=== PATIENT | male | born 1960 | race Hispanic/Latino ===

== ENCOUNTER 2019-05-17 03:46 | Emergency (ER) | payer OTHER ==
[~2019-05-17] VITALS: Ht 167.6 cm; Wt 61.2 kg
[2019-05-17 04:33] LABS: PLATELET COUNT 278 K/uL (142-355)
[2019-05-17 05:29] LABS: POTASSIUM 3.5 mmol/L (3.6-5.2)
[2019-05-17 06:05] VITALS: BP 149/64; TEMP 98.1
== END 2019-05-17 06:05 | disposition home or self-care (01) ==
LOC: ED 03:46
PROVIDERS: Hospitalist
DX: J44.1 Chronic obstructive pulmonary disease with (acute) exacerbation (principal); F41.9 Anxiety disorder, unspecified; F17.210 Nicotine dependence, cigarettes, uncomplicated
CPT/HCPCS: 36415; 80048; 80320; 85027; 87502; 87651; 94664; 96372; 99283; J1200; J2930

== ENCOUNTER 2019-06-23 17:33 | Outpatient (CLI) | payer OTHER | END 2019-06-23 17:35 | disposition short-term general hospital (02) | LOC: AMB 17:33 | DX: R06.03 Acute respiratory distress (principal) | CPT/HCPCS: A0425; A0427 ==

== ENCOUNTER 2019-06-23 17:36 | Inpatient (IN) | payer OTHER ==
[~2019-06-23] VITALS: Ht 165.1 cm; Wt 68.5 kg
[2019-06-23 17:36] VITALS: BP 133/84; TEMP 97.8
[2019-06-23 18:00] VITALS: BP 142/91
[2019-06-23 18:24] LABS: PLATELET COUNT 232 K/uL (142-355)
[2019-06-23 18:30] VITALS: BP 168/96
[2019-06-23 18:32] LABS: POTASSIUM 3.8 mmol/L (3.6-5.2)
[2019-06-23 23:55] VITALS: BP 153/99; TEMP 98.2
--- NOTE | 2019-06-24 00:18 | NUR ---
PT ADMITTED TO FLOOR TO ROOM 1106, BROUGHT TO ROOM BY WHEELCHAIR BY STAFF, ROCEPHIN INFUSING WITHOUT DIFFICULTY, NO SIGN OR SYMPTOMS OF REACTION, PT IS ALERT AND ORIENTED X3, VERY TALKATIVE, SMACKING LIPS AND ANXIOUS, SISTER WITH PT, PT SETTLED INTO ROOM, TELEMETRY APPLIED, V/S TAKEN, HEART RATE IS ELEVATED, B/P IS ELEVATED, RESPIRATORY RATE IS ELEVATED. HEAD TO TOE ASSESSMENT DONE, FINDINGS IN CHARTING. PT HAS SORES TO RT SIDE OF FACE AROUND EYES, PT ADMITS TO DOING METH THE MORNING BEFORE HE WAS BROUGHT TO ER. PT IS TALKING SPORATICALLY, BREATHING RAPIDLY. SISTER STATED "HE IS LIKE THIS WHEN HE DOES METH". PT ORIENTED TO ROOM. SISTER BROUGHT FOOD FOR PATIENT, HE IS EATING WITHOUT DIFFICULTY. IV TO RT AC IS PATENT WITH ROCEPHIN INFUSING AT THIS TIME. WILL CONTINUE TO MONITOR
[2019-06-24 01:24] VITALS: BP 158/114; TEMP 98.5; Ht 165.1 cm; Wt 68.5 kg
[2019-06-24 04:00] VITALS: BP 152/112; TEMP 98.4
[2019-06-24 08:18] VITALS: BP 173/103; TEMP 97.4
[2019-06-24 14:04] VITALS: BP 152/102; TEMP 98.3
[2019-06-24 16:27] VITALS: BP 137/95; TEMP 98
[2019-06-24 19:57] VITALS: BP 139/95; TEMP 97.5
--- NOTE | 2019-06-24 20:05 | NUR ---
DR ALBINO JOSE IN TO SEE PT PER DR MAGALIE JOSE'S REQUEST
[2019-06-25 00:28] VITALS: BP 134/85; TEMP 98.1
[2019-06-25 03:50] LABS: PLATELET COUNT 374 K/uL (142-355)
[2019-06-25 04:00] VITALS: BP 155/95; TEMP 98.1
[2019-06-25 08:00] VITALS: BP 151/79; TEMP 98.4
[2019-06-25 11:03] LABS: POTASSIUM 3.3 mmol/L (3.6-5.2)
[2019-06-25 20:00] VITALS: BP 140/78; TEMP 100.7
[2019-06-26] VITALS: BP 128/77; TEMP 97.8
[2019-06-26 04:00] VITALS: BP 154/97; TEMP 98.2
[2019-06-26 04:48] LABS: PLATELET COUNT 370 K/uL (142-355)
--- NOTE | 2019-06-26 04:48 | NUR ---
06/26/2019 0430 WENT TO CHECK IN ON PATIENT HE IS SITTING IN CHAIR HE IS RESTLESS.PATIENT HAS PULLED OUT SALLINE LOCK PULLED HIIS TELEMENTRY OFF.ALSO HAS SOILED HIS PANTS WITH URINE.PT THREW ITEMS ALLOVER ROOM SAID HE JUST DID IT TO HAVE SOMETHING TO DO. GOWN PUT ON PATIENT.RESTARTED SALIINE LOCK 22 GAUDGE TO LEFT UPPER ARM TAPED AND SECURED WITH TEGADERM AND KG.TOLERATED WELL.CC
[2019-06-26 05:29] LABS: POTASSIUM 4.1 mmol/L (3.6-5.2)
--- NOTE | 2019-06-26 07:20 | NUR ---
WHILE RECEIVING REPORT NURSING STAFF STATED PATIENT HAD LEFT THE ROOM. UPON SEARCHING SURRONDING NURSES STATION AND ROOM, PATIENT WAS NOT IN THE HOSPITAL. NEXT OF KIN NOTIFIED WHO IS SISTER TO PATIENT STATED HER BROTHER WAS AT HER HOUSE. SISTER NOTIFIED ABOUT PATIENT LEAVING AMA. NOTIFIED ABOUT PATIENT LEAVING AMA AND NO FURTHER ORDERS WERE GIVEN AT THIS TIME.
== END 2019-06-26 07:20 | disposition left against medical advice (07) | DRG 190 ==
LOC: ED 17:36 → MED/SURG 23:18
PROVIDERS: Family Medicine; ADMIT Emergency Medicine
DX: J44.0 Chronic obstructive pulmonary disease with (acute) lower respiratory infection (principal); J18.8 Other pneumonia, unspecified organism; J90 Pleural effusion, not elsewhere classified; E87.2 Acidosis; F31.89 Other bipolar disorder; J44.1 Chronic obstructive pulmonary disease with (acute) exacerbation; I50.9 Heart failure, unspecified; F19.10 Other psychoactive substance abuse, uncomplicated; Z91.19 Patient's noncompliance with other medical treatment and regimen; Z72.0 Tobacco use; I10 Essential (primary) hypertension
CPT/HCPCS: 36415; 80053; 80061; 80307; 81000; 82150; 82550; 83605; 83690; 83880; 84484; 85027; 85379; 87040; 87899; 93005; 93306; 94664; 94760; 96365; 99284; J0696; J1650; J1940; J1956; J2060; J3486; Q9963

== ENCOUNTER 2021-03-19 14:07 | Outpatient (CLI) | payer OTHER | END 2021-03-19 21:10 | disposition home or self-care (01) | LOC: RAD 14:07 | PROVIDERS: ATTEND Nurse Practitioner Family | DX: R06.02 Shortness of breath (principal); R60.1 Generalized edema; I50.22 Chronic systolic (congestive) heart failure ==

== ENCOUNTER 2021-05-19 11:09 | Inpatient (IN) | payer OTHER ==
[~2021-05-19] VITALS: Ht 175.3 cm; Wt 67.3 kg
[2021-05-19 11:10] VITALS: BP 143/100; TEMP 97.3
[2021-05-19 11:34] LABS: PLATELET COUNT 253 K/uL (142-355); POTASSIUM 3.5 mmol/L (3.6-5.2)
[2021-05-19 11:54] LABS: PARTIAL THROMBOPLASTIN TIME 29.2 SECONDS (24.5-33.6)
[2021-05-19 12:00] VITALS: BP 150/90
[2021-05-19 14:15] VITALS: BP 148/93
[2021-05-19 15:57] VITALS: BP 152/93; TEMP 98.2; Ht 175.3 cm; Wt 67.3 kg
--- NOTE | 2021-05-19 17:31 | NUR ---
1550 16 FR ALDRIDGE INSERTED AT THIS TIME. WITH 300 ML CLEAR YELLOW URINE OBSERVED. UDS COLLECTED PER MD ORDERS. SISTER DUONG KAY IS TO BRING MEDICATIONS BACK TO HOSPITAL. PT STATES WE ARE NOT TO TELL ANYONE BUT PAGE ANY INFORMATION. DUONG KAY REQUEST THAT SISTER IMER IS NOT TO ENTER HIS ROOM BC SHE WILL GIVE PT CONTROLLED SUBSTANCE. MD MADE AWARE.
--- NOTE | 2021-05-19 17:31 | NUR ---
1530 PT ARRIVED TO FLOOR VIA ADMISSION ASSESSMENT COMPLETED AT THIS TIME.
--- NOTE | 2021-05-19 18:25 | NUR ---
SISTER TO BRING PT HOME MEDS IN THE AM
[2021-05-19 20:25] VITALS: BP 139/78; TEMP 97.2
--- NOTE | 2021-05-19 22:56 | NUR ---
PATIENTS HEART RATE WAS RANGING FROM 97-143. PATIENT BP IS 157/86. BECAUSE THE PATIENTS RECENT NON-STEMI THE LIGHT CLEANER INFORMED THE ER MD GATES ABOUT THE TACHYCARDIA. ORDERED LOPRESSOR 5MG IV ONCE
--- NOTE | 2021-05-19 22:57 | NUR ---
PATIENT WILL NOT WEAR HIS O2. PATIENT PULLS IT OFF EVEN WHEN TAUGHT. PATIENT SATURATION IS 95-100 ON RA.
[2021-05-19 23:57] VITALS: BP 133/71; TEMP 96.8
[2021-05-20 04:49] VITALS: BP 142/88; TEMP 96.7
--- NOTE | 2021-05-20 04:53 | NUR ---
LATE ENTRY: PATIENT HAS BEEN RESTING QUIETLY. PATIENT HEART RATE AND BP ARE STABLE. PATIENT IS STILL CONFUSED BUT HE IS BECOMING MORE ALERT. MOUTH CARE WAS PREFORMED AND PATIENT REQUESTED TO SIT UP AND EAT A SNACK. PATIENT ATE WITH NO DIFFICULTY. PATIENT IS NOW RESTING QUIETLY
[2021-05-20 05:28] LABS: PLATELET COUNT 244 K/uL (142-355)
--- NOTE | 2021-05-20 05:33 | NUR ---
PATIENT BECAME AGGITATED AND WAS TRYING TO GET OUT OF BED. PATIENT BECAME MORE SOB AND TOOK HIS 02 OFF. PATIENT SATURATION DROPPED AND HE BEGAN PURSED LIP BREATHING. PATIENT WAS PULLING OFF HIS TELEMETRY WELL. PATIENT WAS GIVEN PRN ATTIVAN.
--- NOTE | 2021-05-20 05:38 | NUR ---
PATIENT WAS REPOSITONED AND AD OPERATIONS ASSOCIATE ATTEMPTED TO REORIENT. TELE REPLACED AND BED ALARM ON. PATIENT IS NOW ALERT TO SELF BUT NOT DAY OR SITUATION
[2021-05-20 05:51] LABS: POTASSIUM 3.6 mmol/L (3.6-5.2)
[2021-05-20 08:00] VITALS: BP 132/81; TEMP 97
--- NOTE | 2021-05-20 09:43 | NUR ---
8313 DR PATTERSON UPDATED ON PT CONDITION. BEDSIDE ASSESSMENT PER DR PATTERSON. DR PATTERSON TO REVIEW LABS AND GIVE NEW ORDERS.
--- NOTE | 2021-05-20 09:48 | NUR ---
PO MEDS NOT GIVEN PT TO LETHARGIC TO FOLLOW COMMANDS. DR PATTERSON NOTIFIED
--- NOTE | 2021-05-20 10:11 | NUR ---
SPOKE TO DR PATTERSON REGARDING LASIX IVP ORDER WAS CHANGED TO DAILY FROM BID. 40 MG DAILY IS TO START TOMORROW NOT TODAY
[2021-05-20 12:00] VITALS: BP 124/92; TEMP 97.6
--- NOTE | 2021-05-20 12:23 | NUR ---
1200 ATTEMPTED TWICE TO GIVE PT A BREATHING TX AND HE REFUSED.
--- NOTE | 2021-05-20 13:28 | NUR ---
20G TO LAC LEAKING SITE D/C WITH CATH INTACT. NEW SITE STARTED TO RFA FLUSHES WITH NO COMPLAINTS.
--- NOTE | 2021-05-20 15:06 | NUR ---
NOTIFIED OF CT RESULTS. IS GOING TO ORDER HEART ECHO FOR TOMORROW.
--- NOTE | 2021-05-20 15:07 | NUR ---
INITIAL ASSESSMNET COMPLETED ON THIS PT AT BEGINING OF SHIFT PT HAS LABORED BREATHING. USING ACCESSORY MUSCLES. LASIX IVP GIVEN PER MD ORDERS. PT URINE OUTPUT THIS SHIFT SO FAR HAS BEEN 2050ML YELLOW URINE. PT's SISTER ALSO NOTIFIED OF CT RESULTS. PER PT REQUEST ON ADMISSION HE SAID TALK TO PAGE AND DO WHATEVER PAGE SAYS DO.
[2021-05-20 16:00] VITALS: BP 140/91; TEMP 97.2
--- NOTE | 2021-05-20 17:49 | NUR ---
PT HAS RESTED COMFORTABLY FOR THE PAST 3 HOURS WITH RESP EVEN AND NOT LABORED.
--- NOTE | 2021-05-20 18:39 | NUR ---
$50 OF PATIENT MONEY PUT IN LOCK BOX. LINENS AND CLOTHES CHANGED.
[2021-05-20 19:53] VITALS: BP 114/74; TEMP 96.6
[2021-05-20 23:46] VITALS: BP 125/80; TEMP 97.7
[2021-05-21 04:01] VITALS: BP 128/86; TEMP 96.6
[2021-05-21 05:39] LABS: PLATELET COUNT 295 K/uL (142-355)
[2021-05-21 06:52] LABS: POTASSIUM 3.8 mmol/L (3.6-5.2)
--- NOTE | 2021-05-21 07:39 | NUR ---
ISRRAEL, RT IN TO GIVE PT AM BREATHING TREATMENT. PT'S NOTED TO HAVE O2 OFF. ISRRAEL PLACED PT'S O2 BACK ON. O2 READING NOTED TO BE 86% ON PULSE OX.
--- NOTE | 2021-05-21 07:40 | NUR ---
PT BED ALARM GOING OFF. ALY HAMMER AT PT'S BEDSIDE. PT NOTED TO ATTEMPT TO GET UP. PT NOTED TO BE DROWSY AND REMINDED HE CANNOT GET UP AT THIS TIME. PT ASSISTED BACK TO BED WITHOUT DIFFICULTY, O2 PLACED BACK ON PT.
[2021-05-21 08:00] VITALS: BP 127/78; TEMP 97.6
--- NOTE | 2021-05-21 08:30 | NUR ---
PT ASSISTED TO BS BY ALY HAMMER TO EAT BREAKFAST. PT REMAINS DROWSY, PT ORIENTED TO SELF. PT REORIENTED TO TIME AND PLACE. PT CONFIRMS THAT ROMEO KAY IS HIS SISTER. PT PO MEDS CRUSHED AND PLACED IN APPLESAUCE AT THIS TIME. PT TAKING MED WITHOUT DIFFICULTY. PT ABLE TO FEED HIMSELF BREAKFAST WITH MINIMAL ASSISTANCE AT THIS TIME. PT NOTED TO PULL O2 OFF. PT REMINDED THAT HE NEEDS HIS O2 AND O2 PLACED BACK ON PT. PT ASSISTED BACK TO BED AFTER EATING AND BED ALARM ON.
--- NOTE | 2021-05-21 09:00 | NUR ---
PETRA FROM [facility] IN TO OBTAIN ECHO AT THIS TIME.
[2021-05-21 12:00] VITALS: BP 126/92; TEMP 97.2
--- NOTE | 2021-05-21 14:15 | NUR ---
UPON ENTERING PT'S ROOM PT NOTED TO PULL TELEMTRY OFF AND LEANING UP ON THE SIDE RAIL. PT UNABLE TO VERBALIZE C/O. PT NOTED TO BE ANXIOUS AND GRUNTING.
--- NOTE | 2021-05-21 14:15 | NUR ---
PT'S SISTER, ROMEO, HERE AT THIS TIME. DR. PATTERSON UPATED HER ON PT'S CURRENT STATUS.
--- NOTE | 2021-05-21 14:19 | NUR ---
PT'S SISTER ROMEO INFORMED ME THAT PT'S OTHER SISTER GUY IS NOT ALLOWED TO VISIT WITH PT. MIKE VIDAL AT FRONT SCREENING DESK NOTIFIED AND MED SURG/ICU SENIOR POLICY ANALYST NOTIFIED WELL.
[2021-05-21 16:00] VITALS: BP 162/97; TEMP 97.2
[2021-05-21 20:14] VITALS: BP 125/95; TEMP 97
--- NOTE | 2021-05-21 21:30 | NUR ---
PM MEDS GIVEN AT THIS TIME CRUSHED IN APPLESAUCE.PT ABLE TO SWALLOW MED WITH APPLE SAUCE AND EAT WITH MINIMAL ASSIST. LOVENOX AND SOLUMEDROL ALSO GIVEN AT THIS TIME. PT. HAS MOMENTS OF WANTING TO PULL NASAL CANNULA OFF AND INCINERATOR PLANT LABORER EDUCATES ON THE IMPORTANCE OF KEEPING 02 ON. 02 PUT BACK ON PT AT THIS TIME. INCINERATOR PLANT LABORER NOTICES DARK RED URINE IN ALDRIDGE BAG. PT DOES HAVE MOMENTS AT PULLING AT ALDRIDGE SOMETIMES TOO. TELEMETRY PAD AND PULSE OXIMETRY PUT BACK ON PT AT THIS TIME. 20 G TO RIGHT HAND INITIATED AT THIS TIME X'S TWO ATTEMPTS. PT DROWSY AND LETHARGIC. PT HAS CERTAIN MOMENTS OF ANSWERING QUESTIONS APPROPRITELY BUT FALLS BACK ASLEEP. BED ALARM ON AND SIDE RAILS UP TIMES THREE AT THIS TIME. PT READJUSTED IN BED AND WAS ADJUSTED TO A HIGH FOWLERS POSITION WITH PILLOWS BETWEEN BOTH LEG AND HAS BILATERAL ARMS ELEVATED AT THIS TIME.
[2021-05-22] VITALS: BP 144/102; TEMP 96.9
[2021-05-22 04:00] VITALS: BP 94/73; TEMP 97.9
[2021-05-22 05:57] LABS: PLATELET COUNT 201 K/uL (142-355)
[2021-05-22 06:07] LABS: POTASSIUM 4.5 mmol/L (3.6-5.2)
[2021-05-22 08:00] VITALS: BP 130/62; TEMP 97.1
[2021-05-22 12:00] VITALS: BP 118/73; TEMP 98.1
--- NOTE | 2021-05-22 12:45 | NUR ---
BRIAN, PT REPORTS PT UP IN CHAIR AT BEDSIDE, PT REAL SOB WITH TRANSFER FROM BED TO CHAIR AT BS.
[2021-05-22 16:00] VITALS: BP 131/79; TEMP 97.8
[2021-05-22 20:00] VITALS: BP 128/84; TEMP 97.6
[2021-05-23] VITALS: BP 134/89; TEMP 98.5
--- NOTE | 2021-05-23 02:19 | NUR ---
PATIENT IN BED AT THIS TIME. PATIENT IS ALERT AND ORIENTED X2. PATIENT GIVEN PM MEDICATIONS CRUSHED WITH PUDDING. PATIENT TOLERATED MEDICATIONS IN PUDDING WELL. PATIENT IS AGITATED THIS PM. PATIENT IS UP AND DOWN OUT OF BED. PATIENT REORIENTED EACH TIME AND PLACED BACK IN BED. NURSE MONITORING CLOSLY. PATIENT KEEPS PULLING OFF O2. PATIENT EDUCATED ON THE IMPORTANCE OF KEEPING OXYGEN IN PLACE. PATIENT VERBALIZES UNDERSTANDING. CALL LIGHT WITHIN REACH. WILL CONTINUE TO MONITOR.
[2021-05-23 04:00] VITALS: BP 118/76; TEMP 98.4
[2021-05-23 05:33] LABS: PLATELET COUNT 227 K/uL (142-355)
[2021-05-23 05:50] LABS: POTASSIUM 4.2 mmol/L (3.6-5.2)
[2021-05-23 08:00] VITALS: BP 165/94; TEMP 97.6
--- NOTE | 2021-05-23 09:04 | NUR ---
SISTER JAXON CALLED THIS MORNING REQUESTING INFORMATION ON THE PATIENT. INFORMATION WAS NOT PROVIDED TO JAXON. UPON ADMISSION, PATIENT STATED THAT HE WANTED ROMEO TO BE CONTACTED AND TO DO WHATEVER ROMEO SAID TO DO. WITNESSED BY LETICIA HAMM RN CHARGE NURSE.
--- NOTE | 2021-05-23 09:20 | NUR ---
05/23/21 0900 NOTIFED AND UPDATED ON PT THIS AM.V/S 97.6 105 20 165/94 92.PT IS AWAKE SITTING ON SIDE OF BED OCCASIONALLY TRIES TO GET OUT OF BED BUT WILL LIE BACK DOWN WHEN HE IS ASSISTED TO DO SO.ALSO TOLD HER OF PT HAVING LARGE SCROTUM BUT PT HAS BEEN PULLING AT ALDRIDGE CATHETER AT TIMES.INQUIRED ABOUT ECHO TOLD HER ONE WAS DONE ON 05/21/21.ECHO IS ON CHART.WILL CONTINUE TO MONITOR.CALL LIGHT IS WITHIN REACH BED ALARM IS ON.CC
--- NOTE | 2021-05-23 10:37 | NUR ---
9519 SPOKE TO DUONG REGARDING SISTER JAXON CALLING FACILITY MAKING THREATS TOWARD FACILITY. IN REGARDS TO THIS PT THAT SHE REFERS TO HER DAD WHO IS ACTUALLY JAXON'S BROTHER. I TOLD DUONG TO PLEASE CALL AND UPDATE JAXON. THAT INFORMATION COULD ONLY BE RELEASED TO DUONG AND DECISIONS COULD ONLY BE MADE BY DUONG PER PATIENT REQUEST. DUONG TOLD ME SHE DOES NOT HAVE A NUMBER TO CONTACT JAXON. I THEN TOLD HER THAT SHE WOULD HAVE TO MANAGE FAMILY DYNAMICS WE COULD NOT MAKE CHOICES WITH THAT. SHE SAID SHE COULDNT DO ANYTHING WITH JAXNO I TOLD HER TO GET A RESTRAINING ORDER AND TOLD HER SHE DOES NOT HAVE HEALTH CARE POA SHE SHOULD GET IT.
[2021-05-23 12:00] VITALS: BP 147/91; TEMP 97.9
[2021-05-23 16:00] VITALS: BP 159/84; TEMP 98
[2021-05-23 20:26] VITALS: BP 143/83
[2021-05-24] VITALS (7 sets, daily range): BP systolic 119–134; BP diastolic 67–86; TEMP 96.8–98
[2021-05-24 06:51] LABS: PLATELET COUNT 199 K/uL (142-355)
[2021-05-24 07:46] LABS: POTASSIUM 4.5 mmol/L (3.6-5.2)
--- NOTE | 2021-05-24 11:08 | NUR ---
Palma from administration called and said that sister Sola was over there earlier and that she was taking patient her brother with her. He says that he is leaving with her as well. Nuclear Monitoring Technician spoke with other sister Park and she wishes that he would come home with her under hospice but that he is refusing and that there is nothing sunday she can do.
--- NOTE | 2021-05-24 13:20 | NUR ---
0800- SISTER JAXON HERE TO VISIT PATIENT. SISTER ROMEO CALLED TO ASK IF SHE COULD VISIT SHE GRANTED PERMISSION. SISTER JAXON INSTRUCTED THAT VISITATION IS FROM 10- 8. SHE STATED THAT SHE WOULD BE BACK AT 10 0900- PATIENT AGITATED. PATIENT STATED THAT HE WANTED TO LEAVE WITH JAXON. HE SAID," GET OUT OF MY ROOM AND CALL MY SISTER JAXON TO COME PICK ME UP. I AM AGGRAVATED AND I AM ABOUT TO LOSE IT. YOU DO NOT WANT ME TO LOSE IT. BORING MACHINE OPERATOR VERTICAL INSTRUCTED PATIENT THAT SHE WOULD CALL BUT NEEDE TO ENSURE HIS SAFETY. PATIENT SAT DOWN. BORING MACHINE OPERATOR VERTICAL INFORMED PATIENT THAT HE HAD MORNING MEDS. HE STATED, I REFUSE THE MEDS AND ANY FURTHER SERVICES. DO NOT TOUCH ME UNLESS IT IS TO REMOVE THIS STUFF FROM MY BODY. GET OUT OF MY ROOM." SISTER ROMEO AND DR. PATRICK NOTIFIED
--- NOTE | 2021-05-24 15:56 | NUR ---
Patients sister Park at facility and has got together with other family and they have decided to turn the patients lights on and get his house stocked with items that he needs. They asked me to notify hospice and let them know that was now their plan and that the patient agrees. Ros at hospice was notified of the above and she said she would contact Park later to make arrangements to get needed equipment to his house. notifed of the above.
--- NOTE | 2021-05-24 16:30 | NUR ---
SISTER ROMEO AND DEION BRENTON HAVE AGREED TO HOSPICE. SISTER ROMEO WILL TURN LIGHTS ON AND AB WILL BUY GROCERIES. HOSPICE WILL BE SET UP IN PATIENT HOME/.
--- NOTE | 2021-05-24 17:10 | NUR ---
16F ALDRIDGE INSERTED USING STERILE TECHNIQUE, APPROXIMATELY 250ML OF CLEAR YELLOW URINE DRAINED INTO ALDRIDGE CATH BAG. PATIENT TOLERATED WELL.
--- NOTE | 2021-05-24 18:46 | NUR ---
1515 SISTER JAXON CAME TO FLOOR. POLICE ESCORTED SISTER OUT OF HOSPITAL. ROMEO CONTACTED. ROMEO ON HER WAY TO HOSPITAL..
--- NOTE | 2021-05-24 22:48 | NUR ---
NURSE ATBEDSIDE WITH PT. PATIENT WANTS TO GET OUT OF BED CONTINUOUSLY. PATIENT HAS BEEN REORIENTED AND PLACED BACK IN BED. PATIENT HAS NO SIGNS OR SYMPTOMS OF DISTRESS AT THIS TIME. WILL CONTINUE TO MONITOR.
[2021-05-25 04:17] VITALS: BP 125/70; TEMP 97.1
[2021-05-25 08:00] VITALS: BP 145/76; TEMP 97.9
[2021-05-25] MEDS ORDERED: COATED ASPIRIN325 MG PO (12:18)
[2021-05-25] MEDS ORDERED: XANAX 0.25 MG PO (12:18)
[2021-05-25] MEDS ORDERED: ATOR20TA2 PO (12:18)
[2021-05-25] MEDS ORDERED: LISI5TAB10 PO (12:19)
[2021-05-25] MEDS ORDERED: FURO40TA93 PO (12:19)
[2021-05-25] MEDS ORDERED: SPIR50TA8 PO (12:21)
[2021-05-25] MEDS ORDERED: METO-837 PO (12:21)
[2021-05-25] MEDS ORDERED: NITR0.4S SL (12:24)
--- NOTE | 2021-05-25 15:36 | NUR ---
1445 DISCHARGE INSTRUCTIONS GIVEN TO SISTER, ROMEO, AND PATIENT. VERBALLY ACKNOWLEDGES UNDERSSTANDING. PATIENT IS TAKEN TO POV VIA WHEELCHAIR IN STABLE CONDITION WITH PORTABLE O2 TANK THAT THE HOSPICE SERVICE PROVIDED AT 2 LPM VIA NASAL CANNULA. HOSPICE TO MEET FAMILY AT PT HOME.
== END 2021-05-25 14:45 | disposition home health service (06) | DRG 280 ==
LOC: ED 11:09 → MED/SURG 12:50
PROVIDERS: Emergency Medicine; ADMIT Internal Medicine Endocrinology, Diabetes & Metabolism; ATTEND Internal Medicine Endocrinology, Diabetes & Metabolism
DX: I21.4 Non-ST elevation (NSTEMI) myocardial infarction (principal); I50.21 Acute systolic (congestive) heart failure; J44.1 Chronic obstructive pulmonary disease with (acute) exacerbation; Z72.0 Tobacco use; E87.6 Hypokalemia; K70.30 Alcoholic cirrhosis of liver without ascites; K40.90 Unilateral inguinal hernia, without obstruction or gangrene, not specified as recurrent; I25.10 Atherosclerotic heart disease of native coronary artery without angina pectoris; I11.0 Hypertensive heart disease with heart failure
CPT/HCPCS: 36415; 80048; 80053; 80061; 80307; 83880; 84484; 85027; 85379; 85610; 85730; 87635; 93005; 94640; 94664; 94760; 96372; 96374; 96375; 99284; J0456; J0696; J1644; J1650; J1940; J2060; J2270; J2405; J2920; J3490; Q9963; U0003